=== PATIENT | female | born 1990 | race Caucasian/White ===

== ENCOUNTER 2021-01-02 07:10 | Inpatient (IN) | payer OTHER ==
[2021-01-02] MEDS ORDERED: OXYTOCIN 30 UNITS in 0.9% NS 30 UNIT/500 ML INFUS.BAG IVPB SCH (08:00)
[2021-01-02 08:50] VITALS: BMI 24.7
[2021-01-02] MEDS ORDERED: AMPICILLIN - 2 GM in SODIUM CHLORIDE 100 ML IVPB ONE (09:00)
[2021-01-02] MEDS: ELECTROLYTE-148 SOLN 1,000 ML IV SCH (09:20)
[2021-01-02] MEDS ORDERED: OXYTOCIN 30 UNITS in 0.9% NS 30 UNIT/500 ML INFUS.BAG IVPB ONE (09:29)
[2021-01-02] MEDS ORDERED: AMPICILLIN SODIUM 2 GM VIAL ONE (10:16)
[2021-01-02] MEDS: AMPICILLIN - 1 GM in SODIUM CHLORIDE 100 ML IVPB SCH ×2 (14:20→18:25)
[2021-01-02] MEDS ORDERED: AMPICILLIN SODIUM 1 GM VIAL ONE ×2 (14:33→18:23)
[2021-01-02] MEDS ORDERED: PCA PUMP NR ONE ×2 (15:55→20:28)
[2021-01-02] MEDS ORDERED: FENTANYL/BUPIVACAINE/NS/PF - PCEA - 50 ML DISP.SYRIN EP ONE ×2 (15:55→22:08)
[2021-01-02] MEDS ORDERED: NALOXONE HCL 0.4 MG/ML VIAL IVPUSH PRN (16:03)
[2021-01-02] MEDS ORDERED: FENTANYL/BUPIVACAINE/NS/PF - PCEA - 50 ML DISP.SYRIN EP SCH (16:15)
[2021-01-02] MEDS ORDERED: OXYTOCIN 20 UNITS in 0.9% NS 20 UNIT/1,000 ML INFUS.BAG IV ONE (20:22)
[2021-01-02] MEDS ORDERED: LIDOCAINE HCL 1% PRESERVATIVE FREE - 30ML VIAL ONE (20:22)
[2021-01-02] MEDS ORDERED: PROPOFOL 20 ML ONE ×2 (22:36)
[2021-01-02] MEDS ORDERED: LIDOCAINE HCL/PF 2% SDV 5ML VIAL ONE (22:37)
[2021-01-02] MEDS ORDERED: SUCCINYLCHOLINE CHLORIDE 200 MG/10 ML SYRINGE ONE (22:38)
[2021-01-02] MEDS ORDERED: PHENYLEPHRINE HCL 10 MG/1 ML SINGLE DOSE VIAL ONE (22:39)
[2021-01-03] MEDS ORDERED: ceFAZolin SODIUM 1 GM VIAL IVPB ONE
[2021-01-03] MEDS ORDERED: DEXAMETHASONE SOD PHOSPHATE 4 MG/1 ML VIAL ONE (00:03)
[2021-01-03] MEDS ORDERED: ceFAZolin SODIUM 1 GM VIAL ONE (00:03)
[2021-01-03] MEDS ORDERED: OXYTOCIN 10 UNITS/ML VIAL ONE ×2 (00:15→00:16)
[2021-01-03] MEDS ORDERED: KETOROLAC TROMETHAMINE 30 MG/1 ML VIAL ONE (01:16)
[2021-01-03] MEDS ORDERED: ONDANSETRON 4 MG/2 ML VIAL IVPUSH PRN (01:19)
[2021-01-03] MEDS ORDERED: ACETAMINOPHEN 1000 MG/100 ML BAG IVPB ONE (01:20)
[2021-01-03] MEDS ORDERED: KETOROLAC TROMETHAMINE 30 MG/1 ML VIAL IVPUSH ONE (01:21)
[2021-01-03] MEDS ORDERED: IBUPROFEN 600 MG TABLET (FP) PO PRN (01:22)
[2021-01-03] MEDS ORDERED: BISACODYL 10 MG SUPP.RECT RC PRN (01:22)
[2021-01-03] MEDS ORDERED: BENZOCAINE 20% 57 GM BOTTLE TP PRN (01:22)
[2021-01-03] MEDS ORDERED: BENZOCAINE 28 GM HEMORRHOIDAL OINTMENT TP PRN (01:22)
[2021-01-03] MEDS ORDERED: WITCH HAZEL 50% (TUCKS) 40 PAD/JAR PAD TP PRN (01:22)
[2021-01-03] MEDS ORDERED: METHYLERGONOVINE MALEATE 0.2 MG/1 ML AMP IM PRN (01:22)
[2021-01-03] MEDS ORDERED: ACETAMINOPHEN 325 MG TABLET (FP) PO PRN (01:22)
[2021-01-03] MEDS ORDERED: LACTATED RINGERS SOLUTION 1,000 ML IV SCH (01:30)
[2021-01-03] MEDS ORDERED: OXYTOCIN 20 UNITS in 0.9% NS 20 UNIT/1,000 ML INFUS.BAG IV SCH (01:30)
[2021-01-03 01:35] LABS: HEMATOCRIT 30.4 % (32.4-45.2); HEMOGLOBIN 10.4 GM/dL (10.7-15.3); MCH 32.1 pg (25.7-33.7); MCHC 34.1 g/dl (32.0-36.0); MEAN CELL VOLUME 94.2 fl (80-96); MEAN PLT VOLUME 8.9 fl (7.5-11.1); PLATELET COUNT 157 10^3/uL (134-434); RBC 3.23 M/mm3 (3.60-5.2); RDW 13.1 % (11.6-15.6); WHITE BLOOD COUNT 15.3 K/mm3 (4.0-10.0)
[2021-01-03] MEDS: ELECTROLYTE-148 SOLN 1,000 ML IV SCH (01:45)
[2021-01-03] MEDS: AMPICILLIN - 1 GM in SODIUM CHLORIDE 100 ML IVPB SCH ×2 (01:59→04:37)
[2021-01-03] MEDS ORDERED: ceFAZolin 2 GRAM PREMIX BAG IVPB SCH (02:00)
[2021-01-03] MEDS ORDERED: CEFAZOLIN 2 GM/D5W 2 GM/50 ML ML IVPB ONE (07:34)
[2021-01-03] MEDS: ceFAZolin 2 GRAM PREMIX BAG IVPB SCH ×3 (08:00→23:45)
[2021-01-04 10:10] LABS: BASO % 0.3 % (0-2.0); EOS % 0.4 % (0-4.5); HEMATOCRIT 19.5 % (32.4-45.2); LYMPH % 16.8 % (8-40); MCH 32.6 pg (25.7-33.7); MCHC 34.4 g/dl (32.0-36.0); MEAN CELL VOLUME 94.7 fl (80-96); MEAN PLT VOLUME 8.8 fl (7.5-11.1); MONO % 4.2 % (3.8-10.2); NEUT % 78.3 % (42.8-82.8); PLATELET COUNT 120 10^3/uL (134-434); RBC 2.05 M/mm3 (3.60-5.2); RDW 13.1 % (11.6-15.6); WHITE BLOOD COUNT 8.7 K/mm3 (4.0-10.0)
[2021-01-04 10:18] LABS: HEMOGLOBIN 6.7 GM/dL (10.7-15.3)
[2021-01-04] MEDS: FERROUS SO4 325 MG TABLET (FP) PO SCH ×2 (18:42→22:14)
[2021-01-04] MEDS ORDERED: SENNOSIDES/DOCUSATE COMBO (SENNA PLUS) TABLET (UD) PO PRN (22:00)
[2021-01-05 09:31] LABS: BASO % 0.5 % (0-2.0); EOS % 1.2 % (0-4.5); HEMATOCRIT 24.4 % (32.4-45.2); HEMOGLOBIN 8.4 GM/dL (10.7-15.3); LYMPH % 24.1 % (8-40); MCHC 34.6 g/dl (32.0-36.0); MEAN CELL VOLUME 95.4 fl (80-96); MEAN PLT VOLUME 8.6 fl (7.5-11.1); MONO % 4.7 % (3.8-10.2); NEUT % 69.5 % (42.8-82.8); PLATELET COUNT 213 10^3/uL (134-434); RBC 2.55 M/mm3 (3.60-5.2); RDW 13.3 % (11.6-15.6); WHITE BLOOD COUNT 11.1 K/mm3 (4.0-10.0)
[2021-01-05] MEDS: FERROUS SO4 325 MG TABLET (FP) PO SCH (09:50)
[2021-01-05 10:18] VITALS: BP 114/62; PULSE 87; TEMP 98.1
== END 2021-01-05 13:30 | disposition home or self-care (01) | DRG 541 ==
LOC: JLDR 07:10 → J3W 01-03 15:24
PROVIDERS: ADMIT Specialist; ATTEND Specialist
PROC: 10907ZC Drainage of Amniotic Fluid, Therapeutic from Products of Conception, Via Natural or Artificial Opening (ICD-10-PCS; 2021-01-02)
PROC: 3E033VJ Introduction of Other Hormone into Peripheral Vein, Percutaneous Approach (ICD-10-PCS; 2021-01-02)
PROC: 0W8NXZZ Division of Female Perineum, External Approach (ICD-10-PCS; 2021-01-02)
PROC: 10D17Z9 Manual Extraction of Products of Conception, Retained, Via Natural or Artificial Opening (ICD-10-PCS; 2021-01-02)
PROC: 0HQ9XZZ Repair Perineum Skin, External Approach (ICD-10-PCS; 2021-01-02)
PROC: 10E0XZZ Delivery of Products of Conception, External Approach (ICD-10-PCS; principal; 2021-01-02 23:21)
DX: O43.893 Other placental disorders, third trimester (principal); O43.213 Placenta accreta, third trimester; O99.824 Streptococcus B carrier state complicating childbirth; Z3A.39 39 weeks gestation of pregnancy; Z37.0 Single live birth; O90.81 Anemia of the puerperium
CPT/HCPCS: 36415; 36430; 59409; 76856-TC; 80053; 85025; 85027; 85610; 85730; 86780; 86850; 86900; 86901; 86922; 87389; 94760; C9803; J0131; U0003; U0005

== ENCOUNTER 2021-05-29 04:21 | Day surgery (SDC) | payer OTHER ==
[2021-05-29] MEDS ORDERED: LIDOCAINE HCL/PF 2% SDV 5ML VIAL ONE (11:03)
[2021-05-29] MEDS ORDERED: PROPOFOL 20 ML ONE ×2 (11:04)
[2021-05-29] MEDS ORDERED: MIDAZOLAM HCL 2 MG/2 ML SINGLE DOSE VIAL ONE (11:04)
[2021-05-29] MEDS ORDERED: ceFAZolin SODIUM 1 GM VIAL ONE (11:44)
[2021-05-29] MEDS ORDERED: ceFAZolin SODIUM 1 GM VIAL IVPB ONE (11:46)
[2021-05-29] MEDS ORDERED: KETOROLAC TROMETHAMINE 30 MG/1 ML VIAL ONE (11:47)
[2021-05-29] MEDS ORDERED: DEXAMETHASONE SOD PHOSPHATE 4 MG/1 ML VIAL ONE (11:51)
[2021-05-29] MEDS ORDERED: ACETAMINOPHEN 325 MG TABLET (FP) PO PRN (12:18)
[2021-05-29] MEDS ORDERED: IBUPROFEN 400 MG TABLET (FP) PO PRN (12:18)
[2021-05-29] MEDS ORDERED: oxyCODONE HCL 5 MG TABLET PO PRN (12:23)
[2021-05-29] MEDS ORDERED: ONDANSETRON 4 MG/2 ML VIAL IVPUSH PRN (12:23)
[2021-05-29] MEDS ORDERED: LACTATED RINGERS SOLUTION 1,000 ML IV SCH (12:30)
[2021-05-29] MEDS ORDERED: ACETAMINOPHEN INJECTION 100 ML IVPB ONE (13:15)
[2021-05-29] MEDS ORDERED: ACETAMINOPHEN 1000 MG/100 ML BAG IVPB ONE ×2 (13:17→13:45)
[2021-05-29 14:40] VITALS: BP 119/68; PULSE 83; TEMP 97.8
== END 2021-05-29 14:45 | disposition home or self-care (01) ==
LOC: JASU-SURG 04:21
PROVIDERS: ATTEND Specialist
PROC: 0U9L0ZZ Drainage of Vestibular Gland, Open Approach (ICD-10-PCS; principal; 2021-05-29 12:30)
DX: N75.1 Abscess of Bartholin's gland (principal)
CPT/HCPCS: 81025; 88304-TC; 94760; J0131